=== PATIENT | male | born 1995 | race Caucasian/White ===

== ENCOUNTER 2023-06-04 00:56 | Observation (INO) ==
[2023-06-04] MEDS ORDERED: IOPAMIDOL 100 ML BOTTLE IV ONE (00:57)
[2023-06-04] MEDS: 0.9 % SODIUM CHLORIDE 1,000 ML IV ONE (01:58)
[2023-06-04] MEDS: METOCLOPRAMIDE 10 MG/2 ML VIAL IV ONE (01:58)
[2023-06-04] MEDS: HYDROmorphone 1 MG/ML SYRINGE IV ONE ×3 (02:04→05:33)
[2023-06-04 02:19] LABS: Basophils # (Auto) 0.03 K/mcL (0.00-0.30); Basophils % (Auto) 0.3 % (0.0-2.0); Eosinophils # (Auto) 0.08 K/mcL (0.00-0.70); Eosinophils % (Auto) 0.8 % (0.0-7.0); Hematocrit 45.9 % (40.1-51.0); Hemoglobin 15.6 g/dL (13.7-17.5); Lymphocytes # (Auto) 2.19 K/mcL (1.50-4.80); Lymphocytes % (Auto) 20.8 % (15.5-49.0); Mean Cell Volume 85.5 fL (80.0-100.0); Mean Platelet Volume 9.4 fL (8.8-12.5); Monocytes # (Auto) 0.99 K/mcL (0.10-0.90); Monocytes % (Auto) 9.4 % (1.0-12.0); Platelet Count 286 K/mcL (140-440); RBC 5.37 M/mcL (4.63-6.08); Red Cell Distribution Width 11.5 % (11.5-14.5); WBC 10.5 K/mcL (4.5-11.0)
[2023-06-04 02:31] LABS: ALT/SGPT 56 U/L (<40); AST/SGOT 30 U/L (<40); Albumin 4.5 gm/dL (3.2-5.2); Albumin/Globulin Ratio 1.3 (1.0-2.3); Alkaline Phosphatase 131 U/L (39-117); Amylase 50 U/L (28-100); Bilirubin,Total 0.6 mg/dL (0.1-1.0); Blood Urea Nitrogen 9 mg/dL (6-20); C-Reactive Protein 2.59 mg/dL (0.03-0.80); Carbon Dioxide 24 mmol/L (22-30); Chloride 100 mmol/L (96-108); Globulin 3.4 gm/dL (2.2-3.7); Glomerular Filtration Rate 115; Glucose 113 mg/dL (70-105)
[2023-06-04 07:16] LABS: Appearance,Urine Clear (Clear); Bilirubin,Urine Negative (Negative); Color,Urine Yellow; Culture Indicated,Urine No; Glucose,Urine (UA) Negative (Negative); Ketones,Urine 40 mg/dL (Negative); Leukocyte Esterase,Urine Negative /uL (Negative); Nitrate,Urine Negative (Negative); Protein,Urine Negative (Negative); Urine Blood Trace-intact ery/mcL (Negative); Urine RBC 0 /hpf (0-3); Urine Squamous Epithelial Cell 0 /hpf (0-4); Urine WBC 0 /hpf (0-4); Urobilinogen,Urine Normal
[2023-06-04] MEDS: ONDANSETRON 4 MG/2 ML VIAL IV ONE (07:20)
[2023-06-04] MEDS ORDERED: DIATRIZOATE MEGLU/DIATRIZO SOD 120ML BOTTLE PO ONE (07:49)
[2023-06-04] MEDS: LACTATED RINGERS 1,000 ML IV SCH (08:12)
[2023-06-04] MEDS: HYDROmorphone 0.5 MG/0.5 ML SYRINGE IV PRN (08:12)
[2023-06-04] MEDS: ONDANSETRON 4 MG/2 ML VIAL IV PRN (11:28)
[2023-06-04] MEDS: METOCLOPRAMIDE 10 MG/2 ML VIAL IV SCH (17:54)
[2023-06-05] MEDS: POLYETHYLENE GLYCOL 3350 17 GM PACKET PO SCH (13:06)
== END 2023-06-06 14:45 | disposition home or self-care (01) ==
LOC: MEDSUR 00:56 → ED 00:56 → MEDSUR 08:04
PROVIDERS: ADMIT Family Medicine Adult Medicine; ATTEND Family Medicine Adult Medicine